=== PATIENT | male | born 1965 ===

== ENCOUNTER → 2020-09-16 16:05 | Outpatient (CLI) | payer OTHER, SELFPAY ==
--- NOTE | ~2020-09-16 | XR_ITS ---
XR lumbar spine 2-3V DATE: 09/16/2020 16:25 INDICATION: Low back pain, right sciatica TECHNIQUE: AP, lateral, coned lateral lumbosacral views COMPARISON: None FINDINGS: Normal alignment of the lumbar spine. No fracture or bone destruction or spondylolisthesis. Lumbar and lumbosacral interspaces are well preserved. The sacroiliac joints appear normal. IMPRESSION: No significant abnormality Reviewed, dictated and finalized at location B. [facility]AT [facility]DRAUL[facility]ER IMPRESSION: No significant abnormality
== END ==
PROVIDERS: PCP Family Medicine Adolescent Medicine; Visit Provider Family Medicine Adolescent Medicine
DX: M54.41 Lumbago with sciatica, right side (principal)
CPT/HCPCS: 72100

== ENCOUNTER → 2020-09-28 16:04 | Outpatient (CLI) | payer OTHER, SELFPAY ==
--- NOTE | ~2020-09-28 | MR_ITS ---
EXAMINATION: MR lumbar spine wo con DATE: 09/28/2020 16:47 INDICATION: Right-sided sciatica TECHNIQUE: Magnetic resonance imaging (MRI) of the lumbar spine was performed without intravenous con trast. Sequences included sagittal T2-weighted FSE, sagittal T2-weighted FS FSE, sagittal T1-weighted FSE, and axial T2-weighted FSE. COMPARISON: None FINDINGS: 2 mm retrolisthesis L4 on L5. Likely physiologic mild anterior wedging at T12 and L1. Remaining verte bral body heights are normal. Normal marrow signal. Disc heights are normal with mild disc desiccati on at T11-T12 through L4-L5. There is a congenitally small central canal from L2 through L4. The conu s medullaris terminates at T12-L1. There is normal signal in the caudal spinal cord. Paravertebral so ft tissues are unremarkable. The following disc levels are specifically discussed: T12-L1: Disc is mildly bulging. There is mild bilateral facet joint osteoarthritis. There is no neura l foraminal stenosis. There is mild central canal stenosis. L1-L2: Disc is bulging. There is bilateral facet joint osteoarthritis with mild subchondral cystic ch moe at the left superior articular process of L2. There is mild right and mild to moderate left neur al foraminal stenosis. There is mild central canal stenosis. L2-L3: Disc is bulging. There is mild to moderate bilateral facet joint osteoarthritis. There is mild to moderate bilateral neural foraminal stenosis. There is mild central canal stenosis. L3-L4: Disc is bulging. There is moderate bilateral facet joint osteoarthritis. There is moderate josie ateral neural foraminal stenosis. There is mild central canal stenosis. L4-L5: Disc is bulging with superimposed right foraminal zone annular fissure and small disc extrusio n with disc material extending couple millimeters cephalad to the level of the inferior endplate of L 4. There is mild bilateral facet joint osteoarthritis. There is moderate bilateral, right greater judy n left, neural foraminal stenosis. The disc extrusion also exerts some extraforaminal mass effect upo n the exiting right L4 nerve root. There is mild central canal stenosis. L5-S1: The disc does not extend beyond the endplate margin. There is mild to moderate bilateral facet joint osteoarthritis. There is no neural foraminal stenosis. There is no central canal stenosis. IMPRESSION: 1. 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 Correlate clinically for muscle weakness of quadriceps, sensory change of the medial zamarripa, and depressed knee reflex. Reviewed, dictated and finalized at location A. F HAND IMPRESSION: 1. Congenitally small lumbar central canal with mild to moderate spondylosis mo st notable for a foraminal zone annular fissure and disc extrusion on the right at L4-L5 which exerts mass effect upon the exiting L4 nerve root. Correlate cl inically for muscle weakness of quadriceps, sensory change of the medial zamarripa, and depressed knee reflex.
== END ==
PROVIDERS: PCP Family Medicine Adolescent Medicine; Visit Provider Family Medicine Adolescent Medicine
DX: M54.41 Lumbago with sciatica, right side (principal)
CPT/HCPCS: 72148